=== PATIENT | female | born 1995 | race Caucasian/White ===

== ENCOUNTER 2019-05-29 23:38 | Inpatient (IN) ==
[2019-05-30 00:09] LABS: URINE SOURCE VOIDED
[2019-05-30] MEDS ORDERED: PEPCID IV PRN (00:28)
[2019-05-30] MEDS ORDERED: REGLAN PO PRN (00:28)
[2019-05-30] MEDS ORDERED: STADOL IV PRN (00:28)
[2019-05-30] MEDS ORDERED: TYLENOL PO PRN (00:28)
[2019-05-30] MEDS ORDERED: PEPCID PO PRN ×2 (00:28)
[2019-05-30] MEDS ORDERED: SODIUM CHLORIDE 0.9% INJ SCH (00:30)
[2019-05-30] MEDS ORDERED: PITOCIN 30 UNITS/NS 30 UNIT/500 ML IV.SOLN IV SCH (00:30)
[2019-05-30 00:33] LABS: BILIRUBIN URINE NEGATIVE (NEGATIVE); BLOOD URINE NEGATIVE (NEGATIVE); CLARITY CLEAR (CLEAR); COLOR YELLOW; GLUCOSE URINE NEGATIVE (NEGATIVE); KETONE URINE NEGATIVE (NEGATIVE); LEUKOCYTES URINE 2+ (NEGATIVE); NITRITE URINE NEGATIVE (NEGATIVE); PROTEIN URINE TRACE mg/dL (NEGATIVE); UROBILINOGEN URINE NORMAL
[2019-05-30] MEDS ORDERED: MINERAL OIL TOP PRN (00:34)
[2019-05-30] MEDS ORDERED: XYLOCAINE-MPF 1% INJ PRN ×2 (00:34→07:14)
[2019-05-30] MEDS: TRANDATE PO SCH ×3 (00:39→21:28)
[2019-05-30] MEDS: LR 1,000 ML IV SCH ×3 (00:46→02:00)
[2019-05-30] MEDS: ZOFRAN IV PRN ×2 (00:52→20:15)
[2019-05-30 01:00] LABS: UR AMPHETAMINES QUAL NONE DETECTED (NONE DETECT); UR BARBITUATES QUAL NONE DETECTED (NONE DETECT); UR BENZODIAZEPIN QUAL NONE DETECTED (NONE DETECT); UR CANNABINOIDS QUAL NONE DETECTED (NONE DETECT); UR COCAINE QUAL NONE DETECTED (NONE DETECT); UR METHADONE QUAL NONE DETECTED (NONE DETECT); UR METHAMPHETAMINE QUAL NONE DETECTED (NONE DETECT); UR OPIATES QUAL NONE DETECTED (NONE DETECT); UR OXYCODONE QUAL NONE DETECTED (NONE DETECT); UR PCP QUAL NONE DETECTED (NONE DETECT); UR PROPOXYPHENE QUAL NONE DETECTED (NONE DETECT); UR TCA QUAL NONE DETECTED (NONE DETECT)
[2019-05-30 01:36] LABS: BASO# 0.04 X1000 (0.0-0.2); BASO% 0.3 % (0.0-0.8); EOS# 0.15 X1000 (0.0-0.7); EOS% 1.1 % (0.0-10.0); HEMATOCRIT 27.5 % (37.0-47.0); HEMOGLOBIN 8.8 g/dL (12.0-16.0); IMM GRAN# 0.13 X1000 (0.0-0.04); LYMPH# 2.13 X1000 (1.2-3.4); LYMPH% 16.2 % (20.5-51.1); MCH 23.3 PG (27-31); MCV 72.8 FL (81-99); MONO# 0.81 X1000 (0.11-0.59); MONO% 6.2 % (1.7-9.3); MPV 9.9 FL (7.4-10.4); NEUT# 9.86 X1000 (1.4-6.5); NEUT% 75.2 % (42.2-75.2); PLT 450 X1000 (130-400); RBC 3.78 XMIL (4.2-5.4); RDW 15.2 % (11.5-14.5); WBC 13.12 X1000 (4.8-10.8)
[2019-05-30] MEDS ORDERED: NAROPIN 0.2% INJ SCH (01:45)
[2019-05-30] MEDS ORDERED: FENTANYL-BUPIV-NS 2 MCG-0.1% 200 ML EPIDURAL SCH (02:00)
[2019-05-30 02:18] LABS: LYMPHS 21 % (21-51); MONO 2 % (1-9); NRBC 1 % (0-0); SEGS 76 % (42-75)
[2019-05-30 02:19] LABS: ANISOCYTOSIS OCCASIONAL; HYPOCHROM OCCASIONAL; POLYCHROM OCCASIONAL
[2019-05-30 02:20] LABS: LARGE PLATELETS OCCASIONAL; MICROCYTOSIS OCCASIONAL; POIKILOCYTOSIS 1+; STOMATOCYTES OCCASIONAL; TARGET CELLS OCCASIONAL
[2019-05-30 02:24] LABS: AGAP 13; ALBUMIN 3.2 g/dL (3.5-5.0); ALKALINE PHOSPHATASE 375 U/L (32-104); BUN 2 mg/dL (8-22); CALCIUM 8.6 mg/dL (8.8-10.2); CHLORIDE 105 mmol/L (98-107); COSMO 275; CREATININE 0.7 mg/dL (0.5-0.9); ESTIMATED GFR > 60; GLUCOSE 80 mg/dL (70-104); GOT 19 U/L (10-30); GPT 11 U/L (10-36); POTASSIUM 3.6 mmol/L (3.5-5.1); SODIUM 140 mmol/L (136-145); TCO2 22 mmol/L (25-35); TOTAL PROTEIN 6.1 g/dL (6.3-8.3); URIC ACID 5.2 mg/dL (2.4-5.7)
[2019-05-30] MEDS ORDERED: LABETALOL IV ONE ×2 (03:17→05:38)
--- NOTE | 2019-05-30 06:56 | HISTORY AND PHYSICAL ---
CHIEF COMPLAINT: Rupture of membranes. HISTORY OF PRESENT ILLNESS: The patient is a 24-year-old G1, P0 at 39 weeks. She presented to Labor and Delivery with gross rupture of membranes around midnight. She was also complaining of contractions. She denied any vaginal bleeding. She states the baby has been moving. Her is complicated by gestational hypertension. She was recently placed on labetalol 100 mg p.o. b.i.d. She had taken her morning dose, but had not yet taken her evening dose. Blood pressure upon presentation was 162/92. The patient received her evening dose of labetalol and her pressures came down after her first dose. She received her epidural but did not quite get any relief and she had a second epidural. She also received an IV dose of labetalol because of her blood pressures being as high as the 180s over 100s. Blood pressures are now in the 140s to 150s over 80s. REVIEW OF SYSTEMS: She denies any fevers, chills, chest pain, shortness of breath, dysuria, bright red blood per rectum. PAST MEDICAL HISTORY: As above. MEDICATIONS: Labetalol 100 b.i.d. ALLERGIES: No known drug allergies. PAST SURGICAL HISTORY: None. FAMILY HISTORY: Noncontributory. SOCIAL HISTORY: No tobacco, alcohol or drug use. PHYSICAL EXAMINATION: VITAL SIGNS: Temperature 97.0 degrees, heart rate 86, respiration rate 22, blood pressure 162/92, O2 sat 99% on room air. GENERAL: Awake, alert and oriented x3. No acute distress. CV: Regular rate and rhythm. No gallops, murmurs or rubs. LUNGS: Clear to auscultation bilaterally. ABDOMEN: Soft, gravid. Positive bowel sounds. EXTREMITIES: No cyanosis, clubbing or edema. STERILE VAGINAL EXAM: Upon presentation, 1-/2, thick and high. The patient is now 10/100%/0. LABS: White count 13.12, hemoglobin 8.8, hematocrit 27.5, platelets 450,000. Chemistries: Sodium 140, potassium 3.6, chloride 105, carbon dioxide 22, glucose 80, AST 19, ALT 11. membrane rupture was positive. ASSESSMENT: 1. IUP at 39 weeks. 2. SROM. 3. Gestational hypertension with elevated blood pressure. PLAN: Admit to Labor and Delivery. Anticipate delivery soon. Blood pressure control. MTDGanesh
[2019-05-30] MEDS ORDERED: BOOSTRIX VACCINE IM ONE (07:14)
[2019-05-30] MEDS ORDERED: CYTOTEC PO PRN (07:14)
[2019-05-30] MEDS ORDERED: PITOCIN IM PRN (07:14)
[2019-05-30] MEDS ORDERED: HYDROXYZINE IM PRN (07:14)
[2019-05-30] MEDS ORDERED: BENADRYL PO PRN (07:14)
[2019-05-30] MEDS ORDERED: NORCO-5 PO PRN (07:14)
[2019-05-30] MEDS ORDERED: MINERAL OIL PO PRN (07:14)
[2019-05-30] MEDS ORDERED: M-M-R II VACCINE SUBQ ONE (07:14)
[2019-05-30] MEDS ORDERED: AMBIEN PO PRN (07:14)
[2019-05-30] MEDS ORDERED: BENADRYL IV PRN (07:14)
[2019-05-30] MEDS ORDERED: ATARAX PO PRN (07:14)
[2019-05-30] MEDS ORDERED: PERI MEDS (DERMOPLAST/NUPERCAINAL/TUCKS) MISC PRN (07:14)
[2019-05-30] MEDS ORDERED: PITOCIN 20 UNITS/NS 20 UNITS/1,000 ML IV.SOLN IV SCH (07:15)
[2019-05-30] MEDS: MOTRIN PO PRN ×2 (07:52→19:27)
[2019-05-30] MEDS ORDERED: MORPHINE IV ONE (09:34)
[2019-05-30] MEDS: PERCOCET-10 PO PRN ×3 (11:08→21:28)
[2019-05-30] MEDS: PERICOLACE PO SCH (20:30)
[2019-05-31] MEDS: PERCOCET-10 PO PRN ×3 (06:31→23:20)
[2019-05-31] MEDS: MOTRIN PO PRN ×2 (06:31→20:06)
[2019-05-31 06:44] LABS: BASO# 0.03 X1000 (0.0-0.2); BASO% 0.1 % (0.0-0.8); EOS# 0.05 X1000 (0.0-0.7); EOS% 0.2 % (0.0-10.0); HEMATOCRIT 13.1 % (37.0-47.0); IMM GRAN# 0.15 X1000 (0.0-0.04); IMM GRAN% 0.6 % (0.0-0.5); LYMPH# 3.03 X1000 (1.2-3.4); LYMPH% 12.8 % (20.5-51.1); MCHC 30.5 g/dL (33-37); MCV 75.3 FL (81-99); MONO# 1.11 X1000 (0.11-0.59); MONO% 4.7 % (1.7-9.3); MPV 9.7 FL (7.4-10.4); NEUT# 19.33 X1000 (1.4-6.5); NEUT% 81.6 % (42.2-75.2); PLT 383 X1000 (130-400); RBC 1.74 XMIL (4.2-5.4); RDW 15.1 % (11.5-14.5)
[2019-05-31 08:39] LABS: LYMPHS 13 % (21-51); MONO 2 % (1-9); SEGS 85 % (42-75)
[2019-05-31] MEDS: TRANDATE PO SCH ×2 (08:39→20:06)
[2019-05-31] MEDS ORDERED: NS 1,000 ML IV SCH (08:45)
[2019-05-31] MEDS: PERICOLACE PO SCH (20:05)
[2019-05-31 23:59] LABS: BASO# 0.05 X1000 (0.0-0.2); BASO% 0.2 % (0.0-0.8); EOS# 0.21 X1000 (0.0-0.7); HEMATOCRIT 21.8 % (37.0-47.0); HEMOGLOBIN 7.2 g/dL (12.0-16.0); IMM GRAN# 0.36 X1000 (0.0-0.04); IMM GRAN% 1.7 % (0.0-0.5); LYMPH# 2.97 X1000 (1.2-3.4); LYMPH% 13.7 % (20.5-51.1); MCH 25.8 PG (27-31); MCV 78.1 FL (81-99); MONO# 1.19 X1000 (0.11-0.59); MONO% 5.5 % (1.7-9.3); MPV 9.6 FL (7.4-10.4); NEUT# 16.83 X1000 (1.4-6.5); NEUT% 77.9 % (42.2-75.2); PLT 420 X1000 (130-400); RBC 2.79 XMIL (4.2-5.4); RDW 15.9 % (11.5-14.5); WBC 21.61 X1000 (4.8-10.8)
--- NOTE | 2019-06-01 07:22 | OB/GYN PROGRESS NOTE ---
Progress Note OB - . OB Progress Note: Vital Signs - 24 hr 05/31/19 07:59 05/31/19 08:52 05/31/19 09:10 Temperature 97.1 F L 96.7 F L 97.0 F L Pulse Rate 98 H 94 H 103 H Respiratory Rate 14 16 16 Blood Pressure 122/74 133/77 131/84 O2 Sat by Pulse Oximetry 98 100 99 05/31/19 12:05 05/31/19 12:31 05/31/19 14:28 Temperature 96.7 F L 96.7 F L 97.1 F L Pulse Rate 85 82 101 H Respiratory Rate 16 16 16 Blood Pressure 131/80 134/86 149/84 O2 Sat by Pulse Oximetry 99 100 100 05/31/19 15:10 05/31/19 15:24 05/31/19 18:55 Temperature 96.9 F L 96.9 F L 97.3 F L Pulse Rate 100 H 92 H 100 H Respiratory Rate 16 16 16 Blood Pressure 137/88 143/93 157/104 O2 Sat by Pulse Oximetry 100 98 100 05/31/19 19:51 05/31/19 23:32 06/01/19 04:00 Temperature 97.2 F L 96.9 F L Pulse Rate 101 H 96 H Respiratory Rate 18 18 18 Blood Pressure 136/90 133/85 O2 Sat by Pulse Oximetry 100 99 Laboratory Results - last 24 hr 05/31/19 05/31/19 05/31/19 06:14 06:14 22:16 WBC 21.61 H RBC 2.79 L Hgb 7.2 L D Hct 21.8 L D MCV 78.1 L MCH 25.8 L MCHC 33.0 RDW Std Deviation 15.9 H Plt Count 420 H MPV 9.6 Immature Gran % (Auto) 1.7 H Neut % (Auto) 77.9 H Lymph % (Auto) 13.7 L [place] % (Auto) 5.5 Eos % (Auto) 1.0 Baso % (Auto) 0.2 Immature Gran # (Auto) 0.36 H Neut # (Auto) 16.83 H Lymph # (Auto) 2.97 [place] # (Auto) 1.19 H Eos # (Auto) 0.21 Baso # (Auto) 0.05 Segmented Neutrophils 85 H Lymphocytes 13 L Monocytes 2 Blood Type O POSITIVE Antibody Screen NEGATIVE Crossmatch See Detail PPD#2 s/p with PPH transfused 3U PRBC - Pt states she feels much better after blood transfusion. Ready to go home. Baby is doing well. Kamlesh reg diet. Ambulating. No SOB CP or leg pain. Voiding without diff. No TEE, changes in vision, no RUQ pain. VSS AF Gen - Pt in no apparent distress A&O x 3 ABD - soft NT, NT, FF Extreme - no CCE LABS - HgB post transfusion 7.2 - pre trans was 4 A/p PPD#2 Anemia - will d/c home on iron Elevated BP - no s/sx of pre-e - precations given F/u in 6 weeks
[2019-06-01 08:00] VITALS: BP 136/87
[2019-06-01] MEDS: TRANDATE PO SCH (08:08)
== END 2019-06-01 10:45 | disposition home or self-care (01) | DRG 807 ==
LOC: P.OPLD 23:38 → P.LD 23:39
PROVIDERS: ADMIT Obstetrics & Gynecology; ATTEND Obstetrics & Gynecology
CPT/HCPCS: 36430; 59025; 80053; 80104; 80301; 80305; 81003; 84112; 84550; 85025; 86592; 86850; 86900; 86901; 86920; 90715; A9270; G0431; G0434; G0477; J0595; J2270; J2405; J2590; J2795; J7030; J7120; P9016

== ENCOUNTER 2020-02-26 10:03 | Inpatient (IN) ==
[2020-02-26] MEDS ORDERED: ZOFRAN IV ONE (10:14)
[2020-02-26] MEDS ORDERED: NS 1,000 ML IV ONE (10:31)
[2020-02-26] MEDS ORDERED: TORADOL IV ONE (10:31)
[2020-02-26 10:34] LABS: URINE SOURCE CLEAN CATCH
--- NOTE | 2020-02-26 10:35 | PROVIDER DOCUMENTATION ---
This chart was entered by Tiara Phillips Scribe, acting as scribe for Cheryle Muhammad CRNP. HPI-Abdominal Pain/GI Problem - General Chief Complaint: Abdominal Pain Stated Complaint: N/V Time Seen by Provider: 02/26/20 10:08 Source: patient Allergies/Adverse Reactions: Patient Allergies Allergy/AdvReac Type Severity Reaction Status Date / Time Penicillins Allergy Unknown Verified 02/26/20 10:09 Home Medications: Home Medication List Medication Instructions Recorded Confirmed Last Taken Type Esomeprazole Magnesium 40 mg PO DAILY 02/26/20 02/26/20 Unknown History - History of Present Illness-ABD Nature of Presenting Problems: Patient is a 24yo F who presents with complaints of intermittent abdominal pain x1 month, which worsened this morning, bringing her to the ED. Reports 1 episode of emesis this morning. States she has been seen in another ED and Urgent Care a few weeks ago for symptoms, and given GERD medication which has not resolved symptoms. Denies fever, flu-like symptoms, dysuria, blood in emesis/stool, CP, or SOB. Non-toxic in appearance. Abdominal Pain Onset Location: reports: generalized abdomen Pain Radiation: reports: RUQ Quality of Pain: reports: cramping Severity in ED: reports: moderate Onset/Duration: reports: other (1 month) Timing: reports: intermittent Activities at Onset: reports: light activity Exposure to sick contacts?: No Modifying Factors: improves with: nothing. worse with: eating Associated Symptoms: reports: heartburn, nausea, vomiting. denies: back/neck pain, chest pain, cough, diarrhea, fever/chills, headaches, shortness of breath Last BM: last night Dark Stools Present?: reports: none noticed Rectal Bleeding: reports: none # of Diarrhea Episodes: 0 Rectal Pain: reports: none # of Vomiting Episodes: 1 Emesis Description: reports: none, other (anything PO) Bruising or Bleeding Gums?: No Similar Symptoms Previously?: Yes Recently seen or treated by another doctor?: Yes (seen [facility]) Review of Systems - Adult - REVIEW OF SYSTEMS - ADULT Constitutional: denies: chills, fever Eyes: reports: no symptoms reported Ears, Nose, Mouth & Throat: denies: ear pain, sinus problem, throat pain Cardiovascular: denies: chest pain, palpitations Respiratory: denies: cough, shortness of breath, wheezing Gastrointestinal: reports: see HPI, abdominal pain, nausea, vomiting. denies: diarrhea Genitourinary: denies: dysuria, flank pain Musculoskeletal: denies: back pain, neck pain Integumentary: reports: no symptoms reported Neurological: denies: dizziness/vertigo, headache/migraines Psychiatric: reports: no symptoms reported Endocrine: reports: no symptoms reported Past History - Adult - PAST MEDICAL HISTORY-ADULT Review of Records: reports: Nursing Assessment Review, Medications Reviewed, Social history reviewed & non-contributory. Major Childhood Illnesses: reports: denies history Cardiovascular: reports: HTN (with only) Respiratory: reports: asthma Gastrointestinal: reports: GERD Obstetrical/Gynecological: reports: denies history Genitourinary: reports: denies history Musculoskeletal: reports: denies history Neurological: reports: denies history Psychiatric: reports: denies history Endocrine/Immune: reports: denies history Other Conditions: reports: denies history - PRIOR SURGERIES/PROCEDURES Surgical/Procedure History: reports: reviewed, not pertinent - PRIOR HOSPITALIZATIONS Prior Hospitalizations: reports: for other non-related - IMMUNIZATION STATUS Childhood Immunizations: See Nurse Assessment Flu Vaccine: See Nurse Assessment - FAMILY HISTORY Family History: reviewed, not pertinent - SOCIAL HISTORY Smoking: denies Substance Use: denies Living Situation: family Physical Exam-General - PHYSICAL EXAM-ADULT Initial Vital Signs Reviewed: Yes - CONSTITUTIONAL General Appearance: alert, mild distress. negative: lethargic, slow to respond, obtunded - EYES Eyes: PERRL/EOMI, pink conjunctivae. negative: EOM palsy - HEAD, EARS, NOSE, MOUTH & THROAT HENMT: normocephalic/atraumatic, moist mucous membranes. negative: angioedema - NECK Neck: non-tender, full range of motion, supple, normal inspection - RESPIRATORY Respiratory: chest non-tender, lungs clear, normal breath sounds, no pleuratic chest pain, no respiratory distress, no accessory muscle use. negative: crackles, rales, rhonchi, stridor, wheezing - CARDIOVASCULAR Cardiovascular: regular rate, rhythm, no gallop - CHEST (BREASTS) Chest/Breast: deferred - GASTROINTESTINAL (ABDOMEN) Abdominal Exam: normal bowel sounds, soft, guarding, tenderness (diffusely te nder to palpation, however worse in RUQ). negative: distended, rigid, rebound - GENITOURINARY Female Genitalia/Pelvic Exam: deferred Rectal Exam: deferred Hemoccult Exam: deferred - LYMPHATIC Lymphatic: no adenopathy - MUSCULOSKELETAL Back Exam: normal inspection, no CVA tenderness, no vertebral tenderness Extremity: normal range of motion, non-tender, normal gait, normal inspection - SKIN Integumentary: normal color, warm/dry. negative: cyanosis, jaundice, mottled, pallor - NEUROLOGIC Neurologic: grossly normal. negative: abnormal gait, aphasia, EOM palsy - PSYCHIATRIC Psych/Mental Status: normal mood/affect, normal thought content, normal thought process, oriented x 3 Progress - PLAN OF CARE/RESULTS Progress/Plan/Lab Results: Vital Signs - 8 hr 02/26/20 10:05 02/26/20 10:06 Temperature 98.3 F Pulse Rate 70 Respiratory Rate 16 Blood Pressure 101/64 O2 Sat by Pulse Oximetry 100 Orders Category Date Time Status ED: Orthostatic Vital Signs (ER use this DIRECTED Care 02/26/20 10:08 Active ED: Urine Bedside ORDERED Care 02/26/20 10:08 Active Saline Loc NOW Care 02/26/20 10:08 Active AMYLASE [CHEM] Stat Lab 02/26/20 10:08 Uncollected CBC WITH ELECTRONIC DIFF [HEME] Stat Lab 02/26/20 10:08 Uncollected COMPREHENSIVE METABOLIC PANEL [CHEM] Stat Lab 02/26/20 10:08 Uncollected LIPASE [CHEM] Stat Lab 02/26/20 10:08 Uncollected URINALYSIS W/POSS RFLX CULT [URINALYSIS] Stat Lab 02/26/20 10:08 Uncollected 1150: Lab results, imaging results, plan of care, and need for surgery/admission discussed with patient who agrees with and verbalizes understanding. Result Diagrams: 02/26/20 10:32 02/26/20 10:32 - CT/MRI 1 CT Study: Abdomen, Pelvis Impression: See EMR Report (IMPRESSION: 1.Prominent right ovarian cyst with free fluid in the pelvis 2.Distended gallbladder with a dilated common bile duct and mild intrahepatic biliary dilatation. This exam was performed using automated exposure control, adjustment of mA or kV according to patient size, and/or use of iterative reconstruction technique. Electronically signed by Valentin Orellana 02/26/2020 11:27 AM) - CONSULTS/PCP/HOSPITALIST Notification #1 *Consult/PCP/Hospitalist*: Dr. Salinas, Surgery Time Discussed: 11:50 Reason/Comments: Acute cholelithiasis w/ dilated bile duct Consult Disposition: Admit (Transfer to and admit to Dr. Salinas; order Flagyl & Levaquin IV) Departure - Departure Date of Disposition Decision: 02/26/20 Time of Disposition Decision: 11:50 DIAGNOSIS: Acute cholecystitis, Transaminitis Nausea and vomiting Qualifiers: Vomiting type: unspecified Vomiting Intractability: non-intractable Qualified Code(s): R11.2 - Nausea with vomiting, unspecified Leukocytosis, unspecified Qualifiers: Leukocytosis type: unspecified Qualified Code(s): D72.829 - Elevated white blood cell count, unspecified Disposition: ADMITTED INPATIENT 09 Certified Medical Emergency: Emergent Condition: Stable - Critical Care Note This patient required my direct & personal management of CC.: No Attestation - Physician/ FABIO Attestation Patient care was provided by Advanced Practice Provider:: Yes Advanced Practice Provider:: Cheryle Muhammad Advanced Practice Provider documentation review:: The Mid-level provider documentation, treatment plan and medical decision making was reviewed by the physician who agrees with all treatment and medical decision making by the P. The physician spent face to face time with patient:: No Advanced Practice Provider documentation review:: Supervising physician onsite and consulted in the evaluation and care of this patient. The physician did not have a face to face encounter with the patient. This chart was documented by the indicated scribe, (Tiara Phillips Scribe) and accurately reflects the services I performed and decisions made by me, Cheryle Muhammad CRNP, as attested by the provider's signature.
[2020-02-26 10:39] LABS: BASO# 0.02 X1000 (0.0-0.2); BASO% 0.2 % (0.0-0.8); BILIRUBIN URINE NEGATIVE (NEGATIVE); BLOOD URINE NEGATIVE (NEGATIVE); COLOR YELLOW; EOS# 0.09 X1000 (0.0-0.7); EOS% 0.7 % (0.0-10.0); GLUCOSE URINE NEGATIVE (NEGATIVE); HEMOGLOBIN 12.3 g/dL (12.0-16.0); IMM GRAN# 0.01 X1000 (0.0-0.04); IMM GRAN% 0.1 % (0.0-0.5); KETONE URINE NEGATIVE (NEGATIVE); LEUKOCYTES URINE NEGATIVE (NEGATIVE); LYMPH# 1.49 X1000 (1.2-3.4); LYMPH% 12.4 % (20.5-51.1); MCH 27.6 PG (27-31); MCHC 32.4 g/dL (33-37); MCV 85.2 FL (81-99); MONO% 5.8 % (1.7-9.3); MPV 10.1 FL (7.4-10.4); NEUT# 9.72 X1000 (1.4-6.5); NEUT% 80.8 % (42.2-75.2); NITRITE URINE NEGATIVE (NEGATIVE); PLT 408 X1000 (130-400); PROTEIN URINE 200 mg/dL (NEGATIVE); RBC 4.46 XMIL (4.2-5.4); RDW 13.9 % (11.5-14.5); SP GRAVITY URINE 1.027; TURBIDITY URINE HAZY (CLEAR); UROBILINOGEN URINE 4 mg/dL (NORMAL); WBC 12.03 X1000 (4.8-10.8)
[2020-02-26 10:55] LABS: AGAP 17; ALBUMIN 4.8 g/dL (3.5-5.0); ALKALINE PHOSPHATASE 126 U/L (32-104); AMYLASE 58 U/L (20-200); BUN 12 mg/dL (8-22); CALCIUM 9.7 mg/dL (8.8-10.2); CHLORIDE 99 mmol/L (98-107); COSMO 278; CREATININE 0.7 mg/dL (0.5-0.9); ESTIMATED GFR > 60; GLUCOSE 170 mg/dL (70-104); GOT 144 U/L (10-30); GPT 68 U/L (10-36); LIPASE 32 U/L (13-60); POTASSIUM 3.6 mmol/L (3.5-5.1); SODIUM 137 mmol/L (136-145); TCO2 21 mmol/L (25-35); TOTAL PROTEIN 8.1 g/dL (6.3-8.3)
--- NOTE | 2020-02-26 11:29 | Diag Imaging Result Doc PS360 ---
EXAM: CT ABD/PELVIS W/IV CONT ONLY HISTORY: Ab. Pain, nausea, vomiting, elevated LFTs TECHNIQUE: CT abdomen and pelvis with intravenous contrast, but without oral contrast. COMPARISON: None. FINDINGS: The gallbladder is distended and the common bile duct is dilated to 8 mm. No calcified gallstones. No focal hepatic lesion. Normal spleen and adrenal glands. No inflammation about the appendix. Normal kidneys. No hydronephrosis. Normal aorta. No bowel obstruction. Normal appendix. No abscess. The urinary bladder is not distended. There is a 4.3 cm right ovarian cyst with an internal septation as well as a small amount of free fluid in the pelvis. No definite uterine abnormality. IMPRESSION: 1.Prominent right ovarian cyst with free fluid in the pelvis 2.Distended gallbladder with a dilated common bile duct and mild intrahepatic biliary dilatation. This exam was performed using automated exposure control, adjustment of mA or kV according to patient size, and/or use of iterative reconstruction technique. Electronically signed by Valentin Orellana 02/26/2020 11:27 AM
[2020-02-26] MEDS ORDERED: KEFZOL 1 GM/D5W 1 GM/50 ML IVPB IV ONE (11:49)
[2020-02-26] MEDS ORDERED: VANCOMYCIN 1 GM/NS 1 GM/250 ML IVPB IV ONE (11:49)
[2020-02-26] MEDS ORDERED: MORPHINE IV PRN (11:53)
[2020-02-26] MEDS: FLAGYL 500 MG/NS 500 MG/100 ML IVPB IV SCH ×2 (12:16→18:19)
--- NOTE | 2020-02-26 14:36 | HISTORY AND PHYSICAL ---
ADMITTING DIAGNOSIS: Common bile duct obstruction, cholecystitis. HPI: A 24-year-old female with complaints of intermittent abdominal pain x1 month, worsening this morning, brought to emergency department. She had an episode of emesis, it was initially thought when she had been worked up previously that was acid reflux, but she has had continued issues. She was seen in emergency room had a CT scan that showed a dilated common bile duct and dilated gallbladder consistent with cholelithiasis, possible choledocholithiasis. She has been admitted under my care. She is feeling a little bit better now. PAST MEDICAL HISTORY: Hypertension with and asthma. PAST SURGICAL HISTORY: None. SOCIAL: Nonsmoker. FAMILY HISTORY: Reviewed with the patient and noncontributory. ALLERGIES: Penicillin. HOME MEDICATIONS: Reviewed. REVIEW OF SYSTEMS: A full 14 systems reviewed and negative except as specified in HPI. PHYSICAL EXAMINATION: VITAL SIGNS: The patient is currently afebrile. Her vital signs are stable. GENERAL: No acute distress. HEENT: Normocephalic, atraumatic. Pupils equal, round, reactive to light. Mucous membranes moist. Oropharynx benign. NECK: Supple. Trachea midline. CARDIOVASCULAR: Regular rate and rhythm. LUNGS: Grossly clear. ABDOMEN: Soft. Some mild discomfort right upper quadrant. No peritoneal signs. EXTREMITIES: Moves all extremities. NEUROLOGIC: Grossly intact. SKIN: No signs of jaundice. VASCULAR: All extremities perfused. LABORATORY: White blood cell count is 12, hematocrit is normal, platelet count normal. Bilirubin slightly elevated, AST, ALT and alkaline phosphatase are all elevated. CT scan reviewed and radiology report reviewed. ASSESSMENT/PLAN: A 24-year-old female with possible choledocholithiasis. 1. Choledocholithiasis. At this time, we will keep her on antibiotics and plan on surgical intervention tomorrow. Discussed with her the risks, benefits, alternatives, risks including, but not limited to bleeding, infection, risk of anesthesia, risk of common bile duct injury, bile leak, risk of injuring other organs discussed. She voiced understanding and wished to proceed with procedure. Again we will try to do this tomorrow. We will recheck her labs tomorrow. cc: Wolfgang Salinas MD
[2020-02-26] MEDS: LEVAQUIN 750 MG/D5W 750 MG/150 ML IVPB IV SCH (16:53)
[2020-02-26 18:50] LABS: UR EPITHELIAL CELLS <10 /HPF (<10); URINE BACTERIA 1+ /HPF; URINE RBC <10 /HPF (<10); URINE WBC <10 /HPF (<10)
[2020-02-27] MEDS: FLAGYL 500 MG/NS 500 MG/100 ML IVPB IV SCH ×3 (00:30→11:35)
--- NOTE | 2020-02-27 06:23 | GENERAL SURGERY PROGRESS NOTE ---
DATE: 02/27/2020 SUBJECTIVE: The patient seems to be doing okay this morning, hurting less. OBJECTIVE: Vital Signs: The patient is currently afebrile. Her vital signs are stable. General: No acute distress. HEENT: Normocephalic, atraumatic. Pupils are equal, round and reactive to light. No scleral icterus noted right now. Mucous membranes moist. Oropharynx benign. Neck: Supple. Trachea midline. Cardiovascular: Regular rate and rhythm. Lungs: Grossly clear. Abdomen: Soft. Some mild discomfort in the right upper quadrant, but no peritoneal signs. Extremities: Moves all extremities. Neurologic: Grossly intact. Skin: No signs of jaundice. Vascular: All extremities perfused. LABORATORY DATA: Currently pending. ASSESSMENT AND PLAN: A 24-year-old female with choledocholithiasis. Choledocholithiasis. At this time her labs from the morning are pending, but I suspect given the common bile duct dilation and intrahepatic ductal dilation with a leukocytosis that she needs to have surgical intervention. I discussed with her the risks, benefits and alternatives yesterday. She is aware. She wants to proceed. cc: Wolfgang Salinas MD
[2020-02-27 07:05] LABS: AGAP 12; ALB/GLOB RATIO 1.6; ALBUMIN 4.1 g/dL (3.5-5.0); ALKALINE PHOSPHATASE 109 U/L (32-104); BUN 9 mg/dL (8-22); CALCIUM 9.2 mg/dL (8.8-10.2); CHLORIDE 104 mmol/L (98-107); COSMO 276; CREATININE 0.9 mg/dL (0.5-0.9); ESTIMATED GFR > 60; GLUCOSE 90 mg/dL (70-104); GOT 131 U/L (10-30); GPT 156 U/L (10-36); POTASSIUM 3.4 mmol/L (3.5-5.1); SODIUM 139 mmol/L (136-145); TCO2 23 mmol/L (25-35); TOTAL BILIRUBIN 0.85 mg/dL (0.20-1.00); TOTAL PROTEIN 6.7 g/dL (6.3-8.3)
[2020-02-27] MEDS ORDERED: SODIUM CHLORIDE 0.9% ONE (10:22)
[2020-02-27] MEDS ORDERED: MARCAINE 0.25% PF/EPI 1:200,000 ONE (10:22)
[2020-02-27] MEDS ORDERED: LR 1,000 ML ONE (10:22)
[2020-02-27] MEDS ORDERED: XYLOCAINE-MPF 2% ONE (10:23)
[2020-02-27] MEDS ORDERED: VERSED ONE (10:23)
[2020-02-27] MEDS ORDERED: DIPRIVAN 1% ONE (10:23)
[2020-02-27] MEDS ORDERED: FENTANYL ONE (10:24)
[2020-02-27] MEDS: LEVAQUIN 750 MG/D5W 750 MG/150 ML IVPB IV SCH (11:00)
[2020-02-27] MEDS ORDERED: ZEMURON ONE (11:28)
[2020-02-27] MEDS ORDERED: DECADRON ONE (11:32)
[2020-02-27] MEDS ORDERED: TORADOL ONE (11:32)
[2020-02-27] MEDS ORDERED: ZOFRAN ONE (11:32)
[2020-02-27] MEDS ORDERED: ROBINUL ONE (12:01)
[2020-02-27] MEDS ORDERED: NEOSTIGMINE ONE ×2 (12:04→12:09)
[2020-02-27] MEDS: DILAUDID ONE ×2 (12:30→12:42)
--- NOTE | 2020-02-27 12:37 | OPERATIVE NOTE ---
PROCEDURE DATE: 02/27/2020 PREOPERATIVE DIAGNOSIS: Cholelithiasis, possible choledocholithiasis. POSTOPERATIVE DIAGNOSIS: Cholelithiasis, possible choledocholithiasis. PROCEDURE PERFORMED: Laparoscopic cholecystectomy with cholangiogram. SURGEON: Wolfgang Salinas MD. CHEMICAL PROCESSING EQUIPMENT REPAIRER: None. ANESTHESIA: General endotracheal. INTRAOPERATIVE FINDINGS: Common bile duct appeared to be free of stones. COMPLICATIONS: None at the time of this dictation. ESTIMATED BLOOD LOSS: 10 mL. SPECIMENS REMOVED: Gallbladder. BRIEF HISTORY: A 24-year-old female presenting with right upper quadrant pain and elevated bilirubin and common bile duct dilatation on imaging, felt that she needed a laparoscopic cholecystectomy. The risks, benefits and alternatives were discussed and documented in the chart. All questions were answered. DESCRIPTION OF PROCEDURE: After informed consent was obtained the patient was brought to the operative theatre, transferred to the operating table and placed in the supine position. General endotracheal anesthesia was then performed without complication. A formal time-out was then performed confirming the patient and the procedure. All were in agreement. At that time attention was given to the abdomen. An infraumbilical incision was made through which using the Optiview technique we inserted an 11 mm trocar and connected it to insufflation and pneumoperitoneum was achieved and under direct visualization we placed 3 more trocars, all 5 mm, 1 in the subxiphoid and 2 in the right upper quadrant. Using these we identified the gallbladder. We retracted it cephalad. We then dissected out the cystic duct and cystic artery to achieve the critical view of safety. We doubly clipped and ligated the cystic artery. We clipped once on the cystic duct, performed a ductotomy, did a cholangiogram. We saw filling of the common bile duct to the left and right hepatic ducts and emptying into the duodenum with no filling defects. We then doubly clipped and ligated the cystic duct and then dissected the gallbladder fossa and brought it out through the infraumbilical incision, which had to be slightly enlarged to accommodate the stone burden. We then reexamined the clips and they were in good position. We closed the infraumbilical incision with 0 Vicryl on a Niko-Paulo device, removed all trocars, disconnected insufflation. Pneumoperitoneum was released. All skin incisions was closed with 4-0 Monocryl. The patient tolerated the procedure well. She will be transferred back to recovery room. She will be discharged today. cc: Wolfgang Salinas MD
[2020-02-27] MEDS ORDERED: NORCO-5 PO PRN (12:39)
--- NOTE | 2020-02-27 12:40 | Diag Imaging Result Doc PS360 ---
OPERATIVE CHOLANGIOGRAM - 02/27/2020 INDICATION: CHOLECYSTECTOMY TECHNIQUE: The exam was performed by the patient's surgeon. Two images were obtained. Total fluoroscopy time was 30 seconds. COMPARISON: None FINDINGS: Contrast was infused into the cystic duct. This outlines a normal common bile duct. The hepatic ducts are also normal. There is good passage of contrast into the duodenum. IMPRESSION: No complication. Electronically signed by Mandeep Clark 02/27/2020 12:37 PM
[2020-02-27] MEDS ORDERED: NORCO-5 ONE (12:46)
[2020-02-27 13:08] VITALS: BP 134/80
[2020-02-27] MEDS ORDERED: PERIDEX MT SCH (21:00)
== END 2020-02-27 14:41 | disposition home or self-care (01) | DRG 419 ==
LOC: P.ED 10:03 → 4N 10:04
PROVIDERS: ADMIT Surgery; ATTEND Surgery